=== PATIENT | female | born 1930 | race Caucasian/White ===

== ENCOUNTER 2017-06-28 19:38 | Inpatient (IN) | payer MEDICARE ==
[~2017-06-28] VITALS: Ht 165.1 cm; Wt 73.9 kg
[~2017-06-28 19:38] MED LIST: ATEN-100 PO; FURO20TA PO; LOSA25TA31 PO; TAB-TAB PO; VITA400D PO; WARF2.5T40 PO; WARF5TAB PO
[2017-06-28 19:53] VITALS: BP 126/76; PULSE 60; RESP 18; TEMP 97.7; O2SAT 96
[2017-06-28] MEDS ORDERED: ATEN25TA PO (20:25)
[2017-06-28] MEDS ORDERED: FURO40TA PO (20:25)
[2017-06-28] MEDS ORDERED: CALC0.25 PO (20:25)
[2017-06-28] MEDS ORDERED: TRAZ50TA12 PO (20:25)
[2017-06-28] MEDS ORDERED: SPIR25TA PO (20:25)
[2017-06-28] MEDS ORDERED: WARF-23 PO (20:25)
--- NOTE | 2017-06-28 20:30 | PD ---
HPI Chief Complaint: Abnormal Results Time Seen by Provider: 20:09 Travel History International Travel<30 days: No Contact w/Intl Traveler<30days: No Traveled to known affect area: No History of Present Illness HPI 86-year-old female presents to the emergency department by private transportation the care of her daughter for evaluation of elevated INR. Patient takes warfarin for history of atrial fibrillation. Patient is under the care of Dr. Gail Sanchez. Patient had blood work performed on Friday which identified her to have an INR of 18. Patient was told to hold her warfarin as of Friday and had her last dose of warfarin on Friday of this week. Patient had repeat INR level checked on Friday again level was reportedly 18 and as such was sent to the emergency room to have her INR checked today and to receive dose of vitamin K. Patient has had no headache, no change in mentation, as noted small subconjunctival hemorrhage to the left lateral eye, has had no epistaxis, has had no gingival bleeding, has had no hemoptysis, denies any nausea or vomiting and no hematemesis or coffee-ground emesis, has had no abdominal pain, has had no melena hematochezia, has had trace hematuria reportedly on Friday but none subsequently, has had bruising at the antecubital fossae where she had blood work performed on Friday and Friday but no other increased bruising. Patient's had no injury or fall. Patient's had no new shortness of breath although has chronic shortness of breath secondary to history of COPD. Patient's had mild dizziness noted only upon standing and denies any dizziness at this time. No report of chest pain. No near syncope or syncope. Patient also has history of chronic lymphocytic leukemia and is followed by Dr. Quintin Rivas and was last seen by her oncologist 04/24/17. She is followed by her oncologist every 4 months and initial diagnosis of CLL was in 2011 and has been on observation management since diagnosis. Patient's lymphocyte count ranges between 55 and 80,000 with absolute lymphocyte count of 72,000. Patient has not reported any fever chills night sweats weight loss or loss of appetite. PFSH Past Medical History Narrative Medical Warfarin therapy, anemia, CLL, atrial fibrillation, heart murmur, hypertension, COPD; hysterectomy; wine daily; nursing notes reviewed Hx Anticoagulant Therapy: Yes Arthritis: Yes (OSTEO- BILATERAL KNEES) Atrial Fibrillation: Yes Cancer: Yes (CLL- STAGE 0 (DR Iman RIVAS)) Cardiovascular Problems: Yes (AFIB) Diminished Hearing: No Hypertension: Yes Shingles: Yes (HX OF) Menopausal: Yes Past Surgical History Hysterectomy: Yes Social History Alcohol Use: Yes (ONE GLASS OF WINE DAILY) Tobacco Use: No Substance Use: No Allergies-Medications (Allergen,Severity, Reaction): Coded Allergies: No Known Allergies (Unverified Adverse Reaction, Unknown, 06/28/17) Reported Meds & Prescriptions Reported Meds & Active Scripts Active Reported Utibron Neohaler 27.5-15.6 Mcg (Indacaterol/Glycopyrrolate) 27.5 Mcg-15.6 Mcg Cap.w.dev BID Atenolol 25 Mg Tab 12.5 Mg PO DAILY Furosemide 40 Mg Tab 40 Mg PO DAILY Warfarin 5 Mg Tab 5 Mg PO DAILY Calcitriol 0.25 Mcg Cap 0.25 Mcg PO MWF Spironolactone 25 Mg Tab 25 Mg PO DAILY Trazodone (Trazodone HCl) 50 Mg Tab 50 Mg PO HS Review of Systems Except as stated in HPI: all other systems reviewed are Neg General / Constitutional: No: Fever, Chills Eyes: Positive: Redness (small left lateral subconjunctival hemorrhage), No: Visual changes HENT: Positive: Lightheadedness (upon standing), No: Headaches, Vertigo, Nosebleed, Gingival Bleeding Cardiovascular: No: Chest Pain or Discomfort, Palpitations, Syncope Respiratory: No: Shortness of Breath, Hemoptysis Gastrointestinal: No: Nausea, Vomiting, Abdominal Pain, Hematemesis, Hematochezia Genitourinary: Positive: Hematuria (Friday), No: Dysuria, Pelvic Pain, Flank Pain, Vaginal Bleeding Musculoskeletal: No: Myalgias, Arthralgias Skin: No Rash Neurologic: Positive: Dizziness (upon standing), No: Weakness, Headache, Change in Mentation Psychiatric: No: Anxiety Hematologic/Lymphatic: Positive: Easy Bruising Physical Exam Narrative GENERAL: Well-developed well-nourished female no acute distress no respiratory distress; GCS 15 SKIN: Warm and dry. Bruising noted at the antecubital fossa bilaterally at site of venipuncture only. HEAD: Atraumatic. Normocephalic. EYES: Pupils equal and round. No scleral icterus. No injection or drainage; small left lateral subconjunctival hemorrhage. ENT: No nasal bleeding or discharge. Mucous membranes pink and moist. No gingival bleeding or ecchymosis. Airway is patent NECK: Trachea midline. No JVD. CARDIOVASCULAR: Regular rate and rhythm. 2/6 holosystolic murmur. RESPIRATORY: No accessory muscle use. Clear to auscultation. Breath sounds equal bilaterally. GASTROINTESTINAL: Abdomen soft, non-tender, nondistended. Hepatic and splenic margins not palpable. MUSCULOSKELETAL: Extremities without clubbing, cyanosis, or edema. No obvious deformities. NEUROLOGICAL: Awake and alert. No obvious cranial nerve deficits. Motor grossly within normal limits. Five out of 5 muscle strength in the arms and legs. Normal speech. PSYCHIATRIC: Appropriate mood and affect; insight and judgment normal. Data Data Last Documented VS Vital Signs Date Time Temp Pulse Resp B/P (MAP) Pulse Ox O2 Delivery O2 Flow Rate FiO2 06/28/17 21:36 60 17 118/78 (91) 98 Room Air 06/28/17 19:53 97.7 Orders Orders Complete Blood Count With Diff (06/28/17 20:09) Basic Metabolic Panel (Bmp) (06/28/17 20:09) Magnesium (Mg) (06/28/17 20:09) Urinalysis - C+S If Indicated (06/28/17 20:09) Prothrombin Time / Inr (Pt) (06/28/17 20:09) Type And Screen (06/28/17 21:18) Phytonadione Inj (Vitamin K Inj) (06/28/17 21:30) Urine Culture (06/28/17 20:40) Ct Brain W/O Iv Contrast(Rout) (06/28/17 ) Consult Hematology (06/28/17 ) Admit To Inpatient (06/28/17 ) Vital Signs (Adult) Q4H (06/28/17 21:46) Activity Oob With Assistance (06/28/17 21:46) Shot Core Drill Operator / Telemetry .CONTINUOUS (06/28/17 21:46) Intake + Output SANIA.QSHIFT (06/28/17 21:46) Sodium Chloride 0.9% Flush (Ns Flush) (06/28/17 22:00) Sodium Chloride 0.9% Flush (Ns Flush) (06/29/17 09:00) Ondansetron Inj (Zofran Inj) (06/28/17 22:00) Comprehensive Metabolic Panel (06/29/17 06:00) Complete Blood Count With Diff (06/29/17 06:00) Prothrombin Time / Inr (Pt) (06/29/17 06:00) Pt Request For Service (06/28/17 21:46) Pharmacologic Contraindication (06/28/17 21:46) Acetaminophen (Tylenol) (06/28/17 22:00) Acetamin-Hydrocod 325-5 Mg ([place] 5-325 (06/28/17 22:00) Acetamin-Hydrocod 325-10 Mg ([place] 10-32 (06/28/17 22:00) Docusate Sodium-Senna (Bree-Colace) (06/29/17 09:00) Magnesium Hydroxide Liq (Milk Of Magnesi (06/28/17 22:00) Sennosides (Senokot) (06/28/17 22:00) Bisacodyl Supp (Dulcolax Supp) (06/28/17 22:00) Lactulose Liq (Lactulose Liq) (06/28/17 22:00) Inpatient Certification (06/28/17 ) Admit Order (Ed Use Only) (06/28/17 ) Shot Core Drill Operator / Telemetry SANIA.Q8H (06/28/17 21:52) Diet Heart Healthy (06/29/17 Breakfast) Activity Bed Rest (06/28/17 21:52) Notify Dr: Other (06/28/17 21:52) Labs Laboratory Tests Test 06/28/17 20:15 06/28/17 20:40 White Blood Count 103.7 TH/MM3 Red Blood Count 4.01 MIL/MM3 Hemoglobin 11.7 GM/DL Hematocrit 36.1 % Mean Corpuscular Volume 90.0 FL Mean Corpuscular Hemoglobin 29.3 PG Mean Corpuscular Hemoglobin Concent 32.5 % Red Cell Distribution Width 13.8 % Platelet Count 81 TH/MM3 Mean Platelet Volume 10.2 FL Neutrophils (%) (Auto) 5.6 % Lymphocytes (%) (Auto) 90.5 % Monocytes (%) (Auto) 3.6 % Eosinophils (%) (Auto) 0.2 % Basophils (%) (Auto) 0.1 % Neutrophils # (Auto) 5.8 TH/MM3 Lymphocytes # (Auto) 93.9 TH/MM3 Monocytes # (Auto) 3.7 TH/MM3 Eosinophils # (Auto) 0.2 TH/MM3 Basophils # (Auto) 0.1 TH/MM3 CBC Comment AUTO DIFF Differential Total Cells Counted 100 Neutrophils % (Manual) 4 % Lymphocytes % 95 % Monocytes % 1 % Neutrophils # (Manual) 4.1 TH/MM3 Differential Comment FINAL DIFF MANUAL Smudge Cells PRESENT Platelet Estimate LOW Platelet Morphology Comment NORMAL Ovalocytes 2+ Prothrombin Time GREATER THAN 180.0 SEC Prothromb Time International Ratio GREATER THAN 14.5 RATIO Blood Urea Nitrogen 30 MG/DL Creatinine 1.20 MG/DL Random Glucose 104 MG/DL Calcium Level 8.6 MG/DL Magnesium Level 1.7 MG/DL Sodium Level 134 MEQ/L Potassium Level 4.4 MEQ/L Chloride Level 100 MEQ/L Carbon Dioxide Level 29.8 MEQ/L Anion Gap 4 MEQ/L Estimat Glomerular Filtration Rate 43 ML/MIN Urine Collection Type CLEAN CATCH Urine Color YELLOW Urine Turbidity CLOUDY Urine pH 5.5 Urine Specific [place] 1.020 Urine Protein 30 mg/dL Urine Glucose (UA) NEG mg/dL Urine Ketones NEG mg/dL Urine Occult Blood LARGE Urine Nitrite NEG Urine Bilirubin NEG Urine Urobilinogen 0.2 MG/DL Urine Leukocyte Esterase MOD Urine RBC 4-9 /hpf Urine WBC 25-49 /hpf Urine WBC Clumps FEW Urine Squamous Epithelial Cells 0-5 /hpf Urine Bacteria FEW /hpf Urine Mucus OCC /lpf Microscopic Urinalysis Comment CULTURE INDICATED MDM Medical Decision Making Medical Screen Exam Complete: Yes Emergency Medical Condition: Yes Medical Record Reviewed: Yes Interpretation(s) Last Impressions Head CT 06/28/17 0000 Signed Impressions: Service Date/Time: Wednesday, June 28, 2017 22:58 - CONCLUSION: 1. No acute intracranial abnormality. 2. Atrophy and chronic small vessel ischemic change. Gaston Ralph Jr., MD CBC & BMP Diagram 06/28/17 20:15 Calcium Level 8.6, Magnesium Level 1.7 Vital Signs Date Time Temp Pulse Resp B/P (MAP) Pulse Ox O2 Delivery O2 Flow Rate FiO2 06/28/17 21:36 60 17 118/78 (91) 98 Room Air 06/28/17 20:18 62 Room Air 06/28/17 19:53 97.7 60 18 126/76 96 INR: >14.5 Differential Diagnosis Coumadin coagulopathy, anemia, thrombocytopenia, hematuria, subconjunctival hemorrhage Narrative Course 86-year-old female presents with known prolonged INR on Coumadin therapy to be reassessed off Coumadin since Friday. INR resulted is greater than 14.5; vitamin K10 mg ordered IV Patient is agreeable to admission; CT brain noncontrast ordered; patient's case discussed with her oncologist regarding elevation of total white cell count/ lymphocyte count Patient's case discussed with [facility] for admission to step down unit Physician Communication Physician Communication discussed with Dr Rivas; accepted for admission by Dr Lo Diagnosis Primary Impression: Prothrombin time increased due to coumadin Additional Impressions: Supratherapeutic INR CLL (chronic lymphocytic leukemia) Thrombocytopenia Renal insufficiency Admitting Information Admitting Physician Requests: Admit Maile Zimmerman MD Jun 28, 2017 20:30
[2017-06-28 20:45] LABS: BICARBONATE 29.8 MEQ/L (21.0-32.0); CALCIUM 8.6 MG/DL (8.5-10.1); MAGNESIUM 1.7 MG/DL (1.5-2.5)
[2017-06-28 20:49] LABS: CREATININE 1.2 MG/DL (0.50-1.00)
[2017-06-28 20:49] LABS: BILIRUBIN, URINE NEG (NEG); BLOOD, URINE LARGE (NEG); GLUCOSE,URINE NEG (NEG); KETONE, URINE NEG (NEG); NITRITE,URINE NEG (NEG); PH, URINE 5.5 (5.0-8.5); URINE COLOR YELLOW (YELLW/STRAW); URINE LEUKOCYTE ESTERASE MOD (NEG)
[2017-06-28 20:55] LABS: AUTOMATED NEUTROPHIL # 5.8 TH/MM3 (1.8-7.7); BASOPHIL # 0.1 TH/MM3 (0-0.2); BASOPHIL % 0.1 % (0.0-2.0); EOSINOPHIL # 0.2 TH/MM3 (0-0.4); EOSINOPHIL % 0.2 % (0.0-4.0); HEMATOCRIT 36.1 % (35.0-46.0); HEMOGLOBIN 11.7 GM/DL (11.6-15.3); LYMPH % 90.5 % (9.0-44.0); LYMPHOCYTE # 93.9 TH/MM3 (1.0-4.8); MEAN CORPUSCULAR HEMOGLOBIN 29.3 PG (27.0-34.0); MEAN CORPUSCULAR HGB CONC 32.5 % (32.0-36.0); MEAN PLATELET VOLUME 10.2 FL (7.0-11.0); MONO % 3.6 % (0.0-8.0); MONOCYTE # 3.7 TH/MM3 (0-0.9); NEUT % 5.6 % (16.0-70.0); PLATELET COUNT 81 TH/MM3 (150-450); RED BLOOD COUNT 4.01 MIL/MM3 (4.00-5.30); RED CELL DISTRIBUTION WIDTH 13.8 % (11.6-17.2); WHITE BLOOD COUNT 103.7 TH/MM3 (4.0-11.0)
[2017-06-28 21:15] LABS: INTERNATIONAL NORMALIZED RATIO GREATER THAN 14.5 RATIO; PROTHROMBIN TIME - PATIENT GREATER THAN 180.0 SEC (9.8-11.6)
[2017-06-28] MEDS ORDERED: PHYTONADIONE INJ 10 MG in DEXTROSE 5% IN WATER INJ 50 ML IV ONE ×2 (21:30)
[2017-06-28 21:36] VITALS: BP 118/78; PULSE 60; RESP 17; O2SAT 98
[2017-06-28 21:37] LABS: SQUAMOUS EPITHELIAL CELL URINE 0-5 /hpf (0-5); WHITE BLOOD CELL CLUMPS FEW
[2017-06-28 21:38] LABS: BACTERIA, URINE FEW /hpf; MUCUS URINE OCC /lpf (OCC)
[2017-06-28] MEDS ORDERED: BISACODYL 10 MG SUPP RECTAL PRN (22:00)
[2017-06-28] MEDS ORDERED: ACETAMINOPHEN 325 MG TAB PO PRN (22:00)
[2017-06-28] MEDS ORDERED: ACETAMINOPHEN/HYDROcodone 325 MG/10 MG TAB PO PRN (22:00)
[2017-06-28] MEDS ORDERED: LACTULOSE SYRUP 20 GM/30 ML CUP PO PRN (22:00)
[2017-06-28] MEDS ORDERED: SODIUM CHLORIDE 0.9% FLUSH 10 ML FLUSH IV FLUSH PRN (22:00)
[2017-06-28] MEDS ORDERED: MAGNESIUM HYDROXIDE SUSP 30 ML CUP PO PRN (22:00)
[2017-06-28] MEDS ORDERED: ACETAMINOPHEN/HYDROcodone 325 MG/5 MG TAB PO PRN (22:00)
[2017-06-28] MEDS ORDERED: SENNOSIDES 8.6 MG TAB PO PRN (22:00)
[2017-06-28] MEDS ORDERED: ONDANSETRON HCL 4 MG/2 ML VIAL IVP PRN (22:00)
[2017-06-28 22:03] LABS: LYMPHOCYTES 95 % (9-44); MONOCYTES 1 % (0-8); NEUTROPHIL # MANUAL DIFF 4.1 TH/MM3 (1.8-7.7); OVALOCYTES 2+ (NORMAL); POLYS (SEG NEUTROPHILS) 4 % (16-70)
[2017-06-28 22:04] LABS: SMUDGE CELLS PRESENT PRESENT
[2017-06-28 23:00] VITALS: PULSE 62
--- NOTE | 2017-06-28 23:24 | RADRPT ---
EXAM DATE/TIME: 06/28/2017 22:58 [facility] COMPARISON: No previous studies available for comparison. INDICATIONS : Dizziness RADIATION DOSE: 51.48 CTDIvol (mGy) MEDICAL HISTORY : Leukemia. Hypertension. Chronic obstructive pulmonary disease. SURGICAL HISTORY : Hysterectomy. ENCOUNTER: Initial ACUITY: 1 day PAIN SCALE: 0/10 LOCATION: cranial TECHNIQUE: Multiple contiguous axial images were obtained of the head. Using automated exposure control and adj ustment of the mA and/or kV according to patient size, radiation dose was kept as low as reasonably a chievable to obtain optimal diagnostic quality images. DICOM format image data is available electro nically for review and comparison. FINDINGS: CEREBRUM: Atrophy. Periventricular low attenuation change involving both cerebral hemispheres. The ventricles a re normal for age. No evidence of midline shift, mass lesion, hemorrhage or acute infarction. No ex tra-axial fluid collections are seen. POSTERIOR FOSSA: The cerebellum and brainstem are intact. The 4th ventricle is midline. The cerebellopontine angle i s unremarkable. EXTRACRANIAL: The visualized portion of the orbits is intact. SKULL: The calvaria is intact. No evidence of skull fracture. CONCLUSION: 1. No acute intracranial abnormality. 2. Atrophy and chronic small vessel ischemic change. Gaston Ralph Jr., MD on June 28, 2017 at 23:22 Board Certified Radiologist. This report was verified electronically.
[2017-06-28] MEDS ORDERED: INDA1CAP2 (23:31)
[2017-06-29] VITALS (12 sets, daily range): BP systolic 129–146; BP diastolic 71–80; PULSE 48–67; RESP 20–27; TEMP 97.5–98.3; O2SAT 60–95
[2017-06-29 06:52] LABS: AUTOMATED NEUTROPHIL # 5.3 TH/MM3 (1.8-7.7); BASOPHIL # 0.2 TH/MM3 (0-0.2); BASOPHIL % 0.2 % (0.0-2.0); EOSINOPHIL # 0.2 TH/MM3 (0-0.4); EOSINOPHIL % 0.2 % (0.0-4.0); HEMATOCRIT 33.8 % (35.0-46.0); HEMOGLOBIN 11.5 GM/DL (11.6-15.3); LYMPH % 90.6 % (9.0-44.0); LYMPHOCYTE # 85.8 TH/MM3 (1.0-4.8); MEAN CELL VOLUME 90.4 FL (80.0-100.0); MEAN CORPUSCULAR HEMOGLOBIN 30.7 PG (27.0-34.0); MEAN PLATELET VOLUME 9.1 FL (7.0-11.0); MONO % 3.4 % (0.0-8.0); MONOCYTE # 3.2 TH/MM3 (0-0.9); NEUT % 5.6 % (16.0-70.0); PLATELET COUNT 70 TH/MM3 (150-450); RED BLOOD COUNT 3.74 MIL/MM3 (4.00-5.30); RED CELL DISTRIBUTION WIDTH 14.7 % (11.6-17.2); WHITE BLOOD COUNT 94.7 TH/MM3 (4.0-11.0)
[2017-06-29 06:56] LABS: CHLORIDE 104 MEQ/L (98-107); SODIUM (NA) 137 MEQ/L (136-145)
[2017-06-29 06:58] LABS: INTERNATIONAL NORMALIZED RATIO 2.3 RATIO; PROTHROMBIN TIME - PATIENT 23.2 SEC (9.8-11.6)
[2017-06-29 07:02] LABS: CALCIUM 8.6 MG/DL (8.5-10.1)
[2017-06-29 07:03] LABS: ALBUMIN 3.7 GM/DL (3.4-5.0); BICARBONATE 28.9 MEQ/L (21.0-32.0); BLOOD UREA NITROGEN 26 MG/DL (7-18); GLUCOSE,RANDOM 105 MG/DL (74-106)
[2017-06-29 07:06] LABS: ALT (GPT) 11 U/L (10-53); AST (GOT) 15 U/L (15-37); CREATININE 0.91 MG/DL (0.50-1.00); GLOMERULAR FILTRATION RATE 59 ML/MIN (>89)
[2017-06-29 07:07] LABS: TOTAL BILIRUBIN ADULT 1.1 MG/DL (0.2-1.0); TOTAL PROTEIN 6.7 GM/DL (6.4-8.2)
[2017-06-29 07:09] LABS: ALKALINE PHOSPHATASE 78 U/L (45-117)
[2017-06-29 07:13] LABS: LYMPHOCYTES 98 % (9-44); MONOCYTES 1 % (0-8); NEUTROPHIL # MANUAL DIFF 0.9 TH/MM3 (1.8-7.7); OVALOCYTES 1+ (NORMAL); POLYS (SEG NEUTROPHILS) 1 % (16-70); ROULEAUX PRESENT (NORMAL); SMUDGE CELLS PRESENT PRESENT
[2017-06-29] MEDS ORDERED: ACYCLOVIR 200 MG CAP PO SCH (08:15)
--- NOTE | 2017-06-29 08:50 | PD.CONS ---
History of Present Illness Service Hematology/Oncology Consult Requested By Hospitalist service Reason for Consult Supratherapeutic INR. Chronic lymphocytic leukemia. Primary Care Physician Gail Sanchez M.D. Diagnoses: History of Present Illness Chief complaint: Patient transferred to the hospital for supratherapeutic INR of more than 18. Herpes zoster outbreak over sacrum. History of presenting illness: Ms. Hagen is a very pleasant 86-year-old female who is known to me from my outpatient practice. The patient has a long-standing history of chronic lymphocytic leukemia, she is treatment chitra and has been on observation. The patient also has a history of atrial fibrillation and for management of this she has been on therapeutic anticoagulation with warfarin. The patient reports undergoing routine PT/INR checks and her warfarin is managed by her primary care physician Dr. Sanchez. Earlier this week the patient was advised increasing her warfarin dosing from 2.5 mg daily to 5 mg once a week and 2.5 mg the remaining days. Her warfarin tablets are 5 mg tablets each. I sat down talk to the patient and she told me that she took 5 tablets of 5 mg early this week, she interpreted her instructions on dose increase as 5 tablets once a week as opposed to 5 mg once a week. Later that week she was noted on PT/INR check to have an INR of greater than 18. She was recommended holding off on further warfarin dosing and repeating PT /INR on Friday, she came into the ER for PT/INR check and her INR was noted to be unmeasurably high. She was treated with vitamin K IV and this morning her INR is noted to be 2.3. Likely she has not suffered any catastrophic bleeding and a CT scan of the head was done which was negative for acute intracranial bleeding. She does have a left-sided subconjunctival hemorrhage. Hematology/oncology service was contacted last night for management of supratherapeutic INR without acute bleed. Review of Systems Constitutional: COMPLAINS OF: Fatigue, Night Sweats (Occasional night sweats), DENIES: Diaphoretic episodes, Fever, Weight gain, Weight loss, Chills, Dizziness , Change in appetite Endocrine: DENIES: Abnorml menstrual pattern, Heat/cold intolerance, Polydipsia , Polyuria, Polyphagia Eyes: COMPLAINS OF: Blurred vision, Eye inflammation (Itching of the eyes), Eye pain, DENIES: Diplopia, Vision loss, Photosensitivity, Double Vision Ears, nose, mouth, throat: DENIES: Tinnitus, Hearing loss, Vertigo, Nasal discharge, Oral lesions, Throat pain, Hoarseness, Ear Pain, Running Nose, Epistaxis, Sinus Pain, Toothache, Odynophagia Respiratory: COMPLAINS OF: Shortness of breath, DENIES: Apneas, Cough, Snoring , Wheezing, Hemoptysis, Sputum production Cardiovascular: COMPLAINS OF: Dyspnea on Exertion, Lower Extremity Edema, DENIES: Chest pain, Palpitations, Syncope, PND, Orthopnea, Claudication Gastrointestinal: DENIES: Abdominal pain, Black stools, Bloody stools, Constipation, Diarrhea, Nausea, Vomiting, Difficulty Swallowing, Anorexia Genitourinary: COMPLAINS OF: Urgency, DENIES: Abnormal vaginal bleeding, Dysmenorrhea, Dyspareunia, Sexual dysfunction, Urinary frequency, Urinary incontinence, Hematuria, Dysuria, Nocturia, Vaginal discharge Musculoskeletal: COMPLAINS OF: Joint pain, Muscle aches, Joint Swelling, Back pain, DENIES: Stiffness, Neck pain Integumentary: DENIES: Abnormal pigmentation, Pruritus, Rash, Nail changes, Breast masses, Breast skin changes, Nipple discharge Hematologic/lymphatic: DENIES: Bruising, Lymphadenopathy Immunologic/allergic: DENIES: Eczema, Urticaria Neurologic: DENIES: Abnormal gait, Headache, Localized weakness, Paresthesias, Seizures, Speech Problems, Tremor, Poor Balance Psychiatric: DENIES: Anxiety, Confusion, Mood changes, Depression, Hallucinations, Agitation, Suicidal Ideation, Homicidal Ideation, Delusions Except as stated in HPI: all other systems reviewed are Neg Past Family Social History Allergies: Coded Allergies: No Known Allergies (Unverified Adverse Reaction, Unknown, 06/28/17) Past Medical History Chronic lymphocytic leukemia Atrial fibrillation Chronic anticoagulation Osteoarthritis Hypertension Past Surgical History Cataract surgery Hysterectomy Reported Medications Outpatient medications: #1 atenolol 25 mg once daily Furosemide 10 mg once daily Spironolactone 25 mg once daily Trazodone 50 mg p.o. once daily Warfarin 2.5 mg 6 days a week and 5 mg once weekly Active Ordered Medications Inpatient medications: Vitamin K injection 10 mg IV 1 Hydrocodone/acetaminophen 10/325 1 tablet every 4 hours needed for pain Tylenol 650 mg p.o. every 6 hours needed for fever Acyclovir 400 mg p.o. 1 Dulcolax Lactulose 30 mL p.o. once daily as needed for constipation Zofran 4 mg IV every 6 hours as needed for nausea and vomiting. Magnesium oxide 30 mL p.o. every 12 hours. Family History Parents are both . No oncologic diagnoses known in the family. Social History Patient lives at home with her daughter, she is . She was a former smoker but quit smoking more than 25 years ago. Physical Exam Vital Signs Vital Signs Date Time Temp Pulse Resp B/P (MAP) Pulse Ox O2 Delivery O2 Flow Rate FiO2 06/29/17 06:00 56 06/29/17 05:00 53 06/29/17 04:00 97.5 60 20 146/71 (96) 60 06/29/17 04:00 60 06/29/17 03:00 55 06/29/17 02:00 62 06/29/17 01:00 57 06/29/17 00:00 67 06/28/17 23:00 62 06/28/17 22:30 06/28/17 21:36 60 17 118/78 (91) 98 Room Air 06/28/17 20:18 62 Room Air 06/28/17 19:53 97.7 60 18 126/76 (93) 96 Physical Exam GENERAL: Elderly lady, sitting up on a bedside chair, she appears to be no acute distress and appears to be at her baseline. Her daughter is at bedside. SKIN: No rashes, ecchymoses or lesions. Cool and dry. HEAD: Atraumatic. Normocephalic. No temporal or scalp tenderness. EYES: Pupils round and equally reactive to light and accommodation. She has a subconjunctival hemorrhage on the left side. ENT: Nose without bleeding, purulent drainage or septal hematoma. Throat without erythema, tonsillar hypertrophy or exudate. Uvula midline. Airway patent. NECK: Trachea midline. No JVD or lymphadenopathy. Supple, nontender, no meningeal signs. CARDIOVASCULAR: Irregular rhythm, S1-S2 no obvious murmurs rubs gallops. RESPIRATORY: Clear to auscultation. Breath sounds equal bilaterally. No wheezes , rales, or rhonchi. GASTROINTESTINAL: Abdomen soft, non-tender, nondistended. No hepato-splenomegaly , or palpable masses. No guarding. MUSCULOSKELETAL: Decreased muscle mass and tone, she has arthritic osteoarthritic changes of bilateral knees with bone. NEUROLOGICAL: Awake and alert. Cranial nerves II through XII intact. Motor and sensory grossly within normal limits. Five out of 5 muscle strength in all muscle groups. Normal speech. Skin examination: She has herpetic lesions noted adjacent to the sacrum on both sides. Laboratory Laboratory Tests Test 06/28/17 20:15 06/28/17 20:40 06/29/17 06:30 White Blood Count 103.7 94.7 Red Blood Count 4.01 3.74 Hemoglobin 11.7 11.5 Hematocrit 36.1 33.8 Mean Corpuscular Volume 90.0 90.4 Mean Corpuscular Hemoglobin 29.3 30.7 Mean Corpuscular Hemoglobin Concent 32.5 34.0 Red Cell Distribution Width 13.8 14.7 Platelet Count 81 70 Mean Platelet Volume 10.2 9.1 Neutrophils (%) (Auto) 5.6 5.6 Lymphocytes (%) (Auto) 90.5 90.6 Monocytes (%) (Auto) 3.6 3.4 Eosinophils (%) (Auto) 0.2 0.2 Basophils (%) (Auto) 0.1 0.2 Neutrophils # (Auto) 5.8 5.3 Lymphocytes # (Auto) 93.9 85.8 Monocytes # (Auto) 3.7 3.2 Eosinophils # (Auto) 0.2 0.2 Basophils # (Auto) 0.1 0.2 CBC Comment AUTO DIFF AUTO DIFF Differential Total Cells Counted 100 100 Neutrophils % (Manual) 4 1 Lymphocytes % 95 98 Monocytes % 1 1 Neutrophils # (Manual) 4.1 0.9 Differential Comment FINAL DIFF MANUAL FINAL DIFF MANUAL Smudge Cells PRESENT PRESENT Platelet Estimate LOW LOW Platelet Morphology Comment NORMAL NORMAL Ovalocytes 2+ 1+ Prothrombin Time GREATER THAN 180.0 23.2 Prothromb Time International Ratio GREATER THAN 14.5 2.3 Blood Urea Nitrogen 30 26 Creatinine 1.20 0.91 Random Glucose 104 105 Calcium Level 8.6 8.6 Magnesium Level 1.7 Sodium Level 134 137 Potassium Level 4.4 4.1 Chloride Level 100 104 Carbon Dioxide Level 29.8 28.9 Anion Gap 4 4 Estimat Glomerular Filtration Rate 43 59 Urine Collection Type CLEAN CATCH Urine Color YELLOW Urine Turbidity CLOUDY Urine pH 5.5 Urine Specific [place] 1.020 Urine Protein 30 Urine Glucose (UA) NEG Urine Ketones NEG Urine Occult Blood LARGE Urine Nitrite NEG Urine Bilirubin NEG Urine Urobilinogen 0.2 Urine Leukocyte Esterase MOD Urine RBC 4-9 Urine WBC 25-49 Urine WBC Clumps FEW Urine Squamous Epithelial Cells 0-5 Urine Bacteria FEW Urine Mucus OCC Microscopic Urinalysis Comment CULTURE INDICATED [place] PRESENT Total Protein 6.7 Albumin 3.7 Alkaline Phosphatase 78 Aspartate Amino Transf (AST/SGOT) 15 Alanine Aminotransferase (ALT/SGPT) 11 Total Bilirubin 1.1 Date/Time Source Procedure Growth Status 06/28/17 20:40 Urine Clean Catch Urine Culture Pending Received Result Diagram: 06/29/1730 06/29/[address] scan of the head without contrast dated 06/28/2017: Reveals no acute findings. Specifically no evidence of bleeding. Assessment and Plan Assessment and Plan Ms. Hagen is a very pleasant 86-year-old female with a history of chronic lymphocytic leukemia, she is treatment chitra, she also has a history of atrial fibrillation for which he is on chronic therapeutic anticoagulation with warfarin. The patient has been on observation for her CLL, there are no indications for therapeutic intervention at this time. Her WBC count and lymphocytosis is stable, she does have minor thrombocytopenia and minor anemia neither of which are indications for therapeutic intervention at this time. She was admitted to this hospital for observation after she was found to have an INR of 18. The cause of the supratherapeutic INR has now been identified; there was a misunderstanding on warfarin dose adjustment. The patient earlier this week was recommended increasing her dose to 5 mg once daily, the patient interpreted this as increasing the dose to 5 tablets (she had 5 mg tablets at home and therefore earlier this week she took 25 mg on one day). The correct dosing per the patient's daughter should be 2.5 mg/day 6 days a week and 5 mg/day 1 day per week. I went over the correct dosing with the patient and her daughter. I have advised the patient to allow her daughter to adjust the dosing and to fill a pillbox for her. The patient's INR is now in the target range. Because we have identified the cause of the supratherapeutic INR and have taken appropriate measures to prevent this from happening again I would advise the patient to continue following up with her primary care physician for management of her anticoagulation. From the standpoint of chronic lymphocytic leukemia her disease is stable. She will continue following up with me in my outpatient clinic for surveillance. For management of Herpes zoster infection she is on acyclovir which are to continue until the blisters resolved. It may be reasonable to put her on a prophylactic dosing of 400 mg twice daily going forward given the frequency of the breakouts. Quintin Rivas MD Jun 29, 2017 08:50
[2017-06-29] MEDS ORDERED: ACYCLOVIR 200 MG CAP PO ONE (09:00)
[2017-06-29] MEDS ORDERED: DOCUSATE SODIUM 50 MG/SENNA 8.6 MG TAB PO SCH (09:00)
[2017-06-29] MEDS ORDERED: SODIUM CHLORIDE 0.9% FLUSH 10 ML FLUSH IV FLUSH SCH (09:00)
--- NOTE | 2017-06-29 09:14 | HHI.HP ---
[place] [facility] Primary Care Physician Gail Sanchez M.D. Admission Diagnosis warfarin coagulopathy; h/o CLL Diagnoses: Chief Complaint: Elevated INR Travel History International Travel<30 Days: No Contact w/Intl Traveler <30 Da: No Traveled to Known Affected Are: No History of Present Illness This patient is an 86-year-old female with a history of atrial fibrillation has been taking warfarin. Recently she had a subtherapeutic INR and was advised to increase her Coumadin. Apparently she misunderstood at the manner to increase it and began taking higher number of pills than prescribed. The patient says she had no episodes of gingival bleeding, epistaxis or cold rectal bleeding but she did have some right eye inflammation and injection which started acutely. Apparently as an outpatient her Coumadin was checked and the labs did come back as elevated at 18. She was advised to follow-up for repeat INR in the second 1 came back elevated and the patient finally came to the emergency room on Friday. She has a repeat INR which was unmeasurable by our labs. She was given vitamin K intravenously and a repeat INR is 2.3. CT of the head was done due to patient's complaint of dizziness and patient's CT of the head was negative for any acute intracranial processes. Patient been monitored overnight for further issues. She does complain also of a rash which is relatively asymptomatic but quite similar to previous episodes of shingles. She has been on acyclovir in the past. She has not had any fevers or chills. And otherwise she is very healthy independent female at home. Her INR is quite corrected and the patient is likely to go home. Care plan discussed with patient, daughter at bedside and the hematology team. Regarding her CLL patient CLL is quite stable and under observation care Review of Systems Constitutional: DENIES: Diaphoretic episodes, Fatigue, Fever, Weight gain, Weight loss, Chills, Dizziness, Change in appetite, Night Sweats Endocrine: DENIES: Abnorml menstrual pattern, Heat/cold intolerance, Polydipsia , Polyuria, Polyphagia Eyes: COMPLAINS OF: Eye inflammation (And itchy eyes), DENIES: Blurred vision, Diplopia, Eye pain, Vision loss, Photosensitivity, Double Vision Ears, nose, mouth, throat: DENIES: Tinnitus, Hearing loss, Vertigo, Nasal discharge, Oral lesions, Throat pain, Hoarseness, Ear Pain, Running Nose, Epistaxis, Sinus Pain, Toothache, Odynophagia Respiratory: DENIES: Apneas, Cough, Snoring, Wheezing, Hemoptysis, Sputum production, Shortness of breath Cardiovascular: DENIES: Chest pain, Palpitations, Syncope, Dyspnea on Exertion , PND, Lower Extremity Edema, Orthopnea, Claudication Gastrointestinal: DENIES: Abdominal pain, Black stools, Bloody stools, Constipation, Diarrhea, Nausea, Vomiting, Difficulty Swallowing, Anorexia Genitourinary: DENIES: Abnormal vaginal bleeding, Dysmenorrhea, Dyspareunia, Sexual dysfunction, Urinary frequency, Urinary incontinence, Urgency, Hematuria , Dysuria, Nocturia, Vaginal discharge Musculoskeletal: COMPLAINS OF: Joint pain, DENIES: Muscle aches, Stiffness, Joint Swelling, Back pain, Neck pain Integumentary: DENIES: Abnormal pigmentation, Pruritus, Rash, Nail changes, Breast masses, Breast skin changes, Nipple discharge Hematologic/lymphatic: DENIES: Bruising, Lymphadenopathy Immunologic/allergic: DENIES: Eczema, Urticaria Neurologic: DENIES: Abnormal gait, Headache, Localized weakness, Paresthesias, Seizures, Speech Problems, Tremor, Poor Balance Psychiatric: DENIES: Anxiety, Confusion, Mood changes, Depression, Hallucinations, Agitation, Suicidal Ideation, Homicidal Ideation, Delusions Past Family Social History Past Medical History CLL COPD Chronic Coumadin therapy secondary to atrial fibrillation Osteoarthritis Hypertension Past Surgical History Hysterectomy Eye surgery Reported Medications Reviewed in the EMR, recently increased her dose of warfarin Allergies: Coded Allergies: No Known Allergies (Unverified Adverse Reaction, Unknown, 06/28/17) Active Ordered Medications Reviewed in the EMR Family History Mother in her 90s from cardiac disease, father in his 60s from cardiac valve disease Social History Lives with her daughter, no tobacco or alcohol dependency, drinks wine daily Physical Exam Vital Signs Vital Signs Date Time Temp Pulse Resp B/P (MAP) Pulse Ox O2 Delivery O2 Flow Rate FiO2 06/29/17 06:00 56 06/29/17 05:00 53 06/29/17 04:00 97.5 60 20 146/71 (96) 60 06/29/17 04:00 60 4/22/18 03:00 55 06/29/17 02:00 62 06/29/17 01:00 57 06/29/17 00:00 67 06/28/17 23:00 62 06/28/17 22:30 06/28/17 21:36 60 17 118/78 (91) 98 Room Air 06/28/17 20:18 62 Room Air 06/28/17 19:53 97.7 60 18 126/76 (93) 96 Physical Exam GENERAL: This is a well-nourished, well-developed patient, in no apparent distress. SKIN: Right superior buttocks vesicular rash, left sided buttocks with chronic skin changes per family, no rashes, ecchymoses or lesions. Cool and dry. HEAD: Atraumatic. Normocephalic. No temporal or scalp tenderness. EYES: Left eye injection, otherwise pupils equal round and reactive. Extraocular motions intact. No scleral icterus. No injection or drainage. ENT: Nose without bleeding, purulent drainage or septal hematoma. Throat without erythema, tonsillar hypertrophy or exudate. Uvula midline. Airway patent. NECK: Trachea midline. No JVD or lymphadenopathy. Supple, nontender, no meningeal signs. CARDIOVASCULAR: Regular rate and rhythm without murmurs, gallops, or rubs. RESPIRATORY: Clear to auscultation. Breath sounds equal bilaterally. No wheezes , rales, or rhonchi. GASTROINTESTINAL: Abdomen soft, non-tender, nondistended. No hepato-splenomegaly , or palpable masses. No guarding. MUSCULOSKELETAL: Extremities without clubbing, cyanosis, or edema. No joint tenderness, effusion, or edema noted. No calf tenderness. Negative Homans sign bilaterally. NEUROLOGICAL: Awake and alert. Cranial nerves II through XII intact. Motor and sensory grossly within normal limits. Five out of 5 muscle strength in all muscle groups. Normal speech. Laboratory Laboratory Tests Test 06/28/17 20:15 06/28/17 20:40 06/29/17 06:30 White Blood Count 103.7 94.7 Red Blood Count 4.01 3.74 Hemoglobin 11.7 11.5 Hematocrit 36.1 33.8 Mean Corpuscular Volume 90.0 90.4 Mean Corpuscular Hemoglobin 29.3 30.7 Mean Corpuscular Hemoglobin Concent 32.5 34.0 Red Cell Distribution Width 13.8 14.7 Platelet Count 81 70 Mean Platelet Volume 10.2 9.1 Neutrophils (%) (Auto) 5.6 5.6 Lymphocytes (%) (Auto) 90.5 90.6 Monocytes (%) (Auto) 3.6 3.4 Eosinophils (%) (Auto) 0.2 0.2 Basophils (%) (Auto) 0.1 0.2 Neutrophils # (Auto) 5.8 5.3 Lymphocytes # (Auto) 93.9 85.8 Monocytes # (Auto) 3.7 3.2 Eosinophils # (Auto) 0.2 0.2 Basophils # (Auto) 0.1 0.2 CBC Comment AUTO DIFF AUTO DIFF Differential Total Cells Counted 100 100 Neutrophils % (Manual) 4 1 Lymphocytes % 95 98 Monocytes % 1 1 Neutrophils # (Manual) 4.1 0.9 Differential Comment FINAL DIFF MANUAL FINAL DIFF MANUAL Smudge Cells PRESENT PRESENT Platelet Estimate LOW LOW Platelet Morphology Comment NORMAL NORMAL Ovalocytes 2+ 1+ Prothrombin Time GREATER THAN 180.0 23.2 Prothromb Time International Ratio GREATER THAN 14.5 2.3 Blood Urea Nitrogen 30 26 Creatinine 1.20 0.91 Random Glucose 104 105 Calcium Level 8.6 8.6 Magnesium Level 1.7 Sodium Level 134 137 Potassium Level 4.4 4.1 Chloride Level 100 104 Carbon Dioxide Level 29.8 28.9 Anion Gap 4 4 Estimat Glomerular Filtration Rate 43 59 Urine Collection Type CLEAN CATCH Urine Color YELLOW Urine Turbidity CLOUDY Urine pH 5.5 Urine Specific [place] 1.020 Urine Protein 30 Urine Glucose (UA) NEG Urine Ketones NEG Urine Occult Blood LARGE Urine Nitrite NEG Urine Bilirubin NEG Urine Urobilinogen 0.2 Urine Leukocyte Esterase MOD Urine RBC 4-9 Urine WBC 25-49 Urine WBC Clumps FEW Urine Squamous Epithelial Cells 0-5 Urine Bacteria FEW Urine Mucus OCC Microscopic Urinalysis Comment CULTURE INDICATED Rouleau PRESENT Total Protein 6.7 Albumin 3.7 Alkaline Phosphatase 78 Aspartate Amino Transf (AST/SGOT) 15 Alanine Aminotransferase (ALT/SGPT) 11 Total Bilirubin 1.1 Date/Time Source Procedure Growth Status 06/28/17 20:40 Urine Clean Catch Urine Culture Pending Received Result Diagram: 06/29/17 0630 06/29/17 0630 Imaging Last Impressions Head CT 06/28/17 0000 Signed Impressions: Service Date/Time: Wednesday, June 28, 2017 22:58 - CONCLUSION: 1. No acute intracranial abnormality. 2. Atrophy and chronic small vessel ischemic change. MD Nat Mak Jr. VTE Risk Assessment [place] VTE Risk Assessment: Mod/High Risk (score >= 2) VTE Pharm Contraindication: Coagulopathy,INR elevated Caprini Risk Assessment Model Point Value = 1 Point Value = 2 Point Value = 3 Point Value = 5 Age 41-60 Minor surgery BMI > 25 kg/m2 Swollen legs Varicose veins or History of unexplained or recurrent spontaneous Oral contraceptives or hormone replacement Sepsis (< 1 month) Serious lung disease, including pneumonia (< 1 month) Abnormal pulmonary function Acute myocardial infarction Congestive heart failure (< 1 month) History of inflammatory bowel disease Medical patient at bed rest Age 61-74 Arthroscopic surgery Major open surgery (> 45 min) Laparoscopic surgery (> 45 min) Malignancy Confined to bed (> 72 hours) Immobilizing plaster cast Central venous access Age >= 75 History of VTE Family history of VTE Factor V Leiden Prothrombin [id number] Lupus anticoagulant Anticardiolipin antibodies Elevated serum homocysteine Heparin-induced thrombocytopenia Other congenital or acquired thrombophilia Stroke (< 1 month) Elective arthroplasty Hip, pelvis, or leg fracture Acute spinal cord injury (< 1 month) Prophylaxis Regimen Total Risk Factor Score Risk Level Prophylaxis Regimen 0-1 Low Early ambulation 2 Moderate Order ONE of the following: *Sequential Compression Device (SCD) *Heparin 5000 units SQ BID 3-4 Higher Order ONE of the following medications: *Heparin 5000 units SQ TID *Enoxaparin/Lovenox 40 mg SQ daily (WT < 150 kg, CrCl > 30 mL/min) *Enoxaparin/Lovenox 30 mg SQ daily (WT < 150 kg, CrCl > 10-29 mL/min) *Enoxaparin/Lovenox 30 mg SQ BID (WT < 150 kg, CrCl > 30 mL/min) AND/OR *Sequential Compression Device (SCD) 5 or more Highest Order ONE of the following medications: *Heparin 5000 units SQ TID (Preferred with Epidurals) *Enoxaparin/Lovenox 40 mg SQ daily (WT < 150 kg, CrCl > 30 mL/min) *Enoxaparin/Lovenox 30 mg SQ daily (WT < 150 kg, CrCl > 10-29 mL/min) *Enoxaparin/Lovenox 30 mg SQ BID (WT < 150 kg, CrCl > 30 mL/min) AND *Sequential Compression Device (SCD) Assessment and Plan Problem List: (1) Supratherapeutic INR ICD Code: R79.1 - Abnormal coagulation profile Status: Acute Plan: Wonderfully improved after some IV vitamin K. Repeat INR is 2.3 Correct dosing explained to the patient as 2.5 mg per day for 6 out of 7 days and then 5 mg a day for 1 out of 7 days (2) Shingles ICD Code: B02.9 - Zoster without complications Plan: Acyclovir for now with outpatient follow-up (3) CLL (chronic lymphocytic leukemia) ICD Code: C91.90 - Lymphoid leukemia, unspecified not having achieved remission ; T45.515A - Adverse effect of anticoagulants, initial encounter Status: Acute Plan: Currently stable. Continue with outpatient follow-up with hematology Code Status DO NOT RESUSCITATE Discussed Condition With Patient will be discharged home Activity unrestricted Diet Leigh Mckinnon MD Jun 29, 2017 09:14
[2017-06-29] MEDS ORDERED: WARF-18 PO (09:15)
--- NOTE | 2017-06-29 09:15 | HHI.DCPOC ---
Discharge Care Plan Diagnosis: (1) Supratherapeutic INR (2) Shingles Goals to Promote Your Health * To prevent worsening of your condition and complications * To maintain your health at the optimal level Directions to Meet Your Goals Take your medications as prescribed Follow your dietary instruction Follow activity as directed Keep your appointments as scheduled Take your immunizations and boosters as scheduled If your symptoms worsen call your PCP, if no PCP go to Urgent Care Center or Emergency Room Smoking is Dangerous to Your Health. Avoid second hand smoke Call the 24-hour hour crisis hotline for domestic abuse at Leigh Brush MD Jun 29, 2017 09:15
[2017-06-29] MEDS ORDERED: ACYC800T PO (09:16)
[2017-06-29 11:27] LABS: INTERNATIONAL NORMALIZED RATIO 1.8 RATIO; PROTHROMBIN TIME - PATIENT 18.1 SEC (9.8-11.6)
== END 2017-06-29 12:24 | disposition home or self-care (01) | DRG 948 ==
LOC: PHED 19:38 → PHEDA 21:54 → PHICU 22:38
PROVIDERS: ADMIT Hospitalist; ATTEND Hospitalist
DX: R79.1 Abnormal coagulation profile (principal); C91.10 Chronic lymphocytic leukemia of B-cell type not having achieved remission; I48.91 Unspecified atrial fibrillation; B02.9 Zoster without complications; Z79.01 Long term (current) use of anticoagulants; J44.9 Chronic obstructive pulmonary disease, unspecified; M19.90 Unspecified osteoarthritis, unspecified site; I10 Essential (primary) hypertension; Z66 Do not resuscitate; H11.32 Conjunctival hemorrhage, left eye; N28.9 Disorder of kidney and ureter, unspecified; R42 Dizziness and giddiness; Z87.891 Personal history of nicotine dependence
CPT/HCPCS: 70450; 80048; 80053; 81001; 83735; 85007; 85027; 85610; 86850; 86900; 86901; 87086; 96374; J3430